=== PATIENT | female | born 1960 | race Caucasian/White ===

== ENCOUNTER 2019-09-15 14:30 | Outpatient (RCR) | payer MEDICARE, SELFPAY ==
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
--- NOTE | 2019-08-30 15:24 | HP.PTREVAL_ITS ---
FRANK OAKES, It has been my pleasure to treat SEPIDEH JEAN-BAPTISTE over the last 6 visits for LBP, Sciatica. Please see the progress note below for an update on the physical therapy plan of care! Subjective: Pt. reports she cont. to have intermittent LBP that at times wraps around to the front of leg. She is very happy with aquatics therapy, feels good after AT TX SESSIONS. Has plans to attend pool on her own. Getting epidural 09/25, have ahd discussions w/ about cortisone shots in B hips in fuure. Objective/Function: Posture: FH, RS, Increased kyphosis- severe guarding of lumbar spine with movement. Gait: no deviation in LE but have limited trunk rotation and arm swing. ROM: Lumbar: Flexion: hands to mid lopez, Extn: to neutral, SB: decreased by 50%, Rot: decreased by 75% reports increased w/ flexion/ext., L SB, L Rot, no pain with r SB?Rotmotions and is hesitant. Hip: flexion to 90 degrees in supine then reports pain, IR/ER/Abd/Extn: WFL but reports pain, Knee/Ankle: WFL. Sensation:reports hypersensitivity on the right LE in the mid lopez. Palpation: tender throughout lumbar paraspinals, gluts and greater trochs. Flex: Gastroc: moderate, Hamstring: severe and reports pain. Dural Signs: positive bilateral. Strength:Core: poor, Hip: 4-/5 throughout, Knee: 4+/5, Ankle: 5/5. Tenderness t/o has subsided slightly. [ End ] Plan Plan: 08/30/19 2x/week for 4 more weeks of AT. Progress as tolerated. Goals Goal 1:: Pt. will maintain proper posture t/o tx session. Goal Time Frame: 4-6 Weeks Goal Progress: Progressing Goal 2:: Pt. will return to ADL's & report a pain level 0/10 Goal Time Frame: 4-6 Weeks Goal Progress: Progressing Goal 3:: Patient will demo 4+/5 strenth in LE Goal Time Frame: 4-6 Weeks Goal Progress: Progressing Anticipated Interventions Patient/Client Instruction: Educate patient on: Condition, Plan of Care For the Purpose of:: To decrease pain Therapeutic Exercise to Include: Strength training, Endurance training, Body mechanics, Postural training, Flexibilty training, In an aquatic setting, Passive ROM, Dynamic Lumbar Stabilization For the Purpose of:: To improve muscle performance and motor function TENS: Yes Cryotherapy (ice pack, ice massage): Yes Thermo therapy (hot pack): Yes Ultrasound (thermal/non thermal): Yes For the Purpose of:: To decrease pain Please do not hesitate to contact me at [phone] by phone or Fax: if you have questions or concerns regarding this new plan of care! Sincerely, GIA ShipleyT
--- NOTE | 2019-11-07 11:23 | HP.PT.NRP ---
HP - Discharge Summary (1) - Patient Information SEPIDEH JEAN-BAPTISTE was seen in my office for initial evaluation on 07/28/19. The following Plan of Care was established for this patient: Initial Frequency: 2x /Week Initial Duration: 4 Weeks - Anticipated Interventions Patient/Client Instruction: Educate patient on: Condition, Plan of Care For the Purpose of:: To decrease pain Therapeutic Exercise to Include: Strength training, Endurance training, Body mechanics, Postural training, Flexibilty training, In an aquatic setting, Passive ROM, Dynamic Lumbar Stabilization For the Purpose of:: To improve muscle performance and motor function TENS: Yes Cryotherapy (ice pack, ice massage): Yes Thermo therapy (hot pack): Yes Ultrasound (thermal/non thermal): Yes For the Purpose of:: To decrease pain This patient was last seen in our office . Pertinent comments regarding their Physical therapy will appear below: Patient has not attended physical therapy in over 4 weeks- appropriate for d/c and return to MD as appropriate. At this point I will be discontinuing this patient from physical therapy. I would be happy to see this patient again in the future if found appropriate by the physician. Thank you! GIA ShipleyT
== END 2019-09-15 19:00 | disposition home or self-care (01) ==
LOC: PT 14:30
PROVIDERS: Family Provider Family Medicine; PCP Family Medicine
DX: M51.36 Other intervertebral disc degeneration, lumbar region (principal); M54.5 Low back pain; G89.4 Chronic pain syndrome
CPT/HCPCS: 97113; 97161; 97164

== ENCOUNTER 2021-08-26 15:30 | Outpatient (RCR) | payer MEDICARE, MEDICAID, SELFPAY ==
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
--- NOTE | 2021-08-26 15:59 | HP.PTDCSUM ---
It has been my pleasure to treat SEPIDEH JEAN-BAPTISTE referred by INES NICHOLS, with the diagnosis of LOW BACK PAIN for a total of 9 visit(s). Discharge Date: 08/26/21 Please see the following information for a summary of their discharge status. Subjective: Patient states doing much better with managing pain. Patient has not been back to ,but may see DR in the next month Right Back Pain Intensity (Out of 10): 4 % Improvement: 50 Objective/Function: POSTURE: mild forward posture. GAIT: reciprocal pattern. PALAPTION: unremarkable. MMT: quads/hams 4/5,hip flexion 4-/5,ankle 4/5. LUMBAR ROM: flexion min loss,extension min loss Goal 1:: I with Aquatic therapy Goal Progress: Goal Met Goal 2:: Patient to improve lumbar ROM for function of recoevery Goal Progress: Goal Met Goal 3:: Patient to decrease lumbar pain by 50% or> to improve function with gait Goal Progress: Goal Met Goal 4:: Patient to increase BLE strength 4/5 quads/hams ,hip 4-/5 to improve gait Goal Progress: Goal Met Goal 5:: Patient to improve back owestry score by 5 points or > to improve QOL. Goal Progress: Goal Met Plan: D/C TO Aquatic Discharge Comments: WATER EXERCISES If there are questions or concerns regarding this patient's physical therapy, please feel free to call me at [phone]. Thank you for the referral of this patient. Sincerely, Art Rico, PT, Cert MDT, OCS Balance/Gait/Functional tests - Balance/Special Test Scores Oswestry Low Back Score: 5
== END 2021-08-26 19:00 | disposition home or self-care (01) ==
LOC: PT 15:30
PROVIDERS: PCP Family Medicine
DX: M54.5 Low back pain (principal)
CPT/HCPCS: 97113; 97162; 97530

== ENCOUNTER → 2024-09-01 | Outpatient (CLI) | payer MEDICARE, MEDICAID, SELFPAY ==
[2024-09-01 09:08] LABS: Absolute Lymphocyte Count 1.98 X10^3/uL (0.83-4.51); Absolute Neutrophil Count 1.2 X10^3/uL (2.0-7.7); Basophil# 0.04 X10^3/uL; Basophil% 1.1 % (0-1); Eosinophil# 0.24 X10^3/uL; Eosinophils% 6.5 % (0-5); Hemoglobin 13.1 g/dL (12.0-15.0); Lymphocyte # 1.98 X10^3/ul (0.83-4.51); Lymphocyte % 53.4 % (19-41); Mean Corp Hgb Conc 32.8 g/dL (32-36); Mean Corpuscular Hgb 32.3 pg (27.0-32.0); Mean Corpuscular Volume 98.5 fL (81-99); Mean Platelet Vol. 10.2 fl (6.2-12.0); Monocyte# 0.27 X10^3/uL; Monocyte% 7.3 % (0-10); NRBC Flagged by Analyzer 0 % (0-5); Neutrophil # 1.18 X10^3/uL (2.7-7.7); Neutrophil % 31.7 % (47-70); Platelet Count 229 K/mm3 (150-450); RBC Distribution Width CV 13.2 % (11.6-14.6); RBC Distribution Width SD 48.3 fl (35.1-43.9); Red Blood Count 4.06 M/mm3 (4.2-5.4); White Blood Count 3.7 K/mm3 (4.4-11.0)
[2024-09-01 09:28] LABS: Vitamin D,25 Hydroxy 11.1 ng/mL
[2024-09-01 09:30] LABS: Hemoglobin A1c 5.9 % (3.8-5.6)
[2024-09-01 09:34] LABS: AST(SGOT) 18 U/L (15-37); Alanine Aminotransfer ALT/SGPT 31 U/L (13-56); Albumin, Serum 3.6 g/dL (3.2-5.0); Alkaline Phosphatase 98 U/L (45-117); Anion Gap 4 (5-15); BUN 15 mg/dL (7-18); BUN/Creat Ratio 19.5 RATIO (10-20); Calcium,Total 9.4 mg/dL (8.5-10.1); Chloride 107 mmol/L (98-107); Cholesterol 209 mg/dL (200); Creatinine, Serum 0.77 mg/dL (0.55-1.02); EST Glomerular Filtration Rate 80 mL/min (>60); Est Glom Filt Rate - Afr Amer 97 mL/min (>60); Globulin 3.5 g/dL (2.2-4.2); Glucose 104 mg/dL (74-106); High Density Lipoprotein 45 mg/dL; Protein, Total 7.1 g/dL (6.4-8.2); Sodium Level 140 mmol/L (136-145); Thyroid Stim Hormone (TSH) 0.101 uIU/mL (0.358-3.740); Triglycerides 153 mg/dL; Very Low Density Lipoprotein 31 mg/dL (5-40)
== END | disposition home or self-care (01) ==
PROVIDERS: PCP Family Medicine
DX: Z79.899 Other long term (current) drug therapy (principal)
CPT/HCPCS: 36415; 80053; 80061; 82306; 83036; 84443; 85025

== ENCOUNTER 2024-11-07 14:30 | Outpatient (RCR) | payer MEDICARE, MEDICAID, SELFPAY ==
--- NOTE | 2024-07-20 16:30 | HP.PTEVAL ---
Patient's Visit Information Visit Information Visit Information: SEPIDEH JEAN-BAPTISTE is a 64 year old F referred to Physical Therapy by LIS Jose with a diagnosis of CHRONIC RIGHT SIDE LOW BACK PAIN WITH SCIATICA,CERVICAL RADICULOPATHY. Date of Evaluation: 07/20/24 Physical Therapist: Art Rico, PT, Cert MDT, OCS Visit Plan Frequency: 2x /Week Duration: 4 Weeks Plan: PT INTERVENTIONS AQUATIC THERAPY FOR CERVICAL/LUMBAR ROM ,POSTURAL EX'S ,DLS ,LE FLEXABILITY AND ACTIVITY MODIFICATION Subjective Subjective: This 64 y/o female presents to physical therapy with cervical and lumbar pain. Patient has had lumbar many years had MRI 2020 DDd bulging disc and foraminal narrowing. Patient seen DR prescribed meloxicam and muscle relaxer. Patient had x-rays of cervical DDD . Patient has had neck pain for ~ 3 years. Patient has seen chiropractor. Patient pain located lumbar pain with radicular symptoms to anterior thigh right > left . Location cervical to shoulders. Patient pain dull pain . Denies paresthesia/tingling in legs and occasionally in hands. Aggravating standing 10mins ,sitting ,bending and lifting. Alleviating heaty and rest. Aggravating sitting ,flexion ,lifting [place] < 5 #. C/O [employer]. Denies nausea/tinnitus.Coughing/sneezing- . Bowel/bladder-. Patient use sleeping aid for night. Patient sees chiropractor. Patient fell last year. Patient has seen pain management in April with injections for lumbar. Patient pain affects QOL and function with housework tasks. Patient goals to decrease pain in back and neck. SOCIAL: VOCATION: disability Pain Bilateral Back: Pain Intensity (Out of 10): 7 Pain Intensity Range: 10 Bilateral Neck: Pain Intensity (Out of 10): 8 Pain Intensity Range: 10 Objective Objective: POSTURE: mild forward posture NEURO: denies paresthesia/tingling ,reflexes C5-6-7 2/3,L4-5,L4-L5,L5-S 1 3/3 PALAPTION: tender LS/SI -levator/scapular AROM: BUE WFL CERVICAL ROM: flexion min loss .extension mod loss ,lateral flexion/rotation mod loss LUMBAR ROM: flexion mod loss ,extension mod loss ,side glides min loss MMT: quads/hams 4/5 ,hip flexion 4-/5 FLEXABILITY: hamstrings mod tight GAIT: reciprocal pattern Special Tests C/S Radiculapathy - Left Upper limb tension test: Negative C/S Radiculapathy - Right Upper limb tension test: Negative C/S Radiculapathy - Left [place]: Positive C/S Radiculapathy - Right [place]: Positive C/S Radiculapathy - Left Cervical distraction: Negative C/S Radiculapathy - Right Cervical distraction: Negative C/S Radiculapathy - Left Relief test: Negative C/S Radiculapathy - Right Relief test: Negative C/S Radiculapathy - Valsalva: Negative Sharp Nicholas: Negative Vertebral Artery Test: Negative Alar Ligament Test: Negative L/S Slump test left side: Negative L/S Slump test right side: Negative L/S Left Straight Leg Raise: Negative L/S Right Straight Leg Raise: Negative Lumbar Standing: Flexion - Mechanical Response: No effect Lumbar Standing: Flexion - Symptoms During Testing: Increases Lumbar Standing: Flexion - Symptoms After Testing: No worse Lumbar Standing: Extension - Mechanical Response: No effect Lumbar Standing: Extension - Symptoms During Testing: Increases Lumbar Standing: Extension - Symptoms After Testing: No worse Lumbar Standing: Right Side Glides - Mechanical Response: No effect Lumbar Standing: Right Side [place] - Symptoms During Testing: No effect Lumbar Standing: Right Side [place] - Symptoms After Testing: No effect Lumbar Standing: Left Side [place] - Mechanical Response: No effect Lumbar Standing: Left Side [place] - Symptoms During Testing: No effect Lumbar Standing: Left Side [place] - Symptoms After Testing: No effect Balance/Special Test Scores Oswestry Low Back Score: 31 Goals Goal 1:: Patient to be I with Aquatic therapy program Goal Time Frame: 4-6 Weeks Goal 2:: Patient to improve cervical ROM for function of recovery to drive Goal Time Frame: 4-6 Weeks Goal 3:: Patient to improve lumbar ROM for function of recovery to put on shoes Goal Time Frame: 4-6 Weeks Goal 4:: Patient to improve back oswestry by 5 points to improve QOL and function Goal Time Frame: 4-6 Weeks Goal 5:: Patient to demonstrate 40% improvement with less pain and improved function Goal Time Frame: 4-6 Weeks Rehabilitation Potential Physical Therapy Diagnosis: This patient has cervical and lumbar pain with pain with positioning and motion testing affects walking/standing causes impairments with ADL and housework tasks thus benefit from skilled PT Rehabilitation Potential: Good Anticipated Interventions Patient/Client Instruction: Educate patient on: Condition and Plan of Care For the Purpose of:: To decrease pain, To increase ROM, To improve muscle performance and motor function, To improve ability to perform ADL's, To increase tolerance to activity/condition/position, To improve ability of physical actions for home/community/work/leisure, To improve health of tissue, To decrease soft tissue restriction, To increase flexibility/ROM, To reduce risk of recurrence and To prevent re-injury Therapeutic Exercise to Include: Strength training, Endurance training, Balance training, Postural training, Flexibilty training, In an aquatic setting and Dynamic Lumbar Stabilization For the Purpose of:: To decrease pain, To increase ROM, To improve muscle performance and motor function, To increase tolerance to activity/condition/position, To improve performance and independence with ADL's, To improve ability of physical actions for home/community/work/leisure, To improve health of tissue, To decrease soft tissue restriction, To increase flexibility/ROM, To improve endurance, To improve safety, To prevent re-injury and To improve tolerance to ADL's Text: Thank you for the opportunity to evaluate your patient. For Medicare and Medicare HMO plans, please review the plan of care and approve it. It will need to be FAXED BACK to us at [phone] for Medicare purposes. For Medicare only, by signing this I certify the plan of care. Please let me know if there are questions or concerns regarding this plan of care. Physician Signature: Date:
--- NOTE | 2024-08-24 17:26 | HP.PTREVAL ---
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 Please see the progress note below for an update on the physical therapy plan of care! Subjective Subjective: Doing better ,meloxicam ,flexeril combination doesn't work well so just takes flexeril Worse in hips sees chiropractor 2xweek Objective Objective/Function: * Patient conts to benefit from skilled PT to decrease pain with goals and appropriate goals* POSTURE: mild forward posture NEURO: denies paresthesia/tingling ,reflexes C5-6-7 2/3,L4-5,L4-L5,L5-S 1 3/3 PALAPTION: tender LS/SI -levator/scapular AROM: BUE WFL CERVICAL ROM: flexion min loss ,extension min/mod loss ,lateral flexion/rotation min/mod loss LUMBAR ROM: flexion min/mod loss ,extension mod loss ,side glides min loss MMT: quads/hams 4/5 ,hip flexion 4-/5 FLEXABILITY: hamstrings mod tight GAIT: reciprocal pattern Plan Plan Plan: PT INTERVENTIONS AQUATIC THERAPY FOR CERVICAL/LUMBAR ROM ,POSTURAL EX'S ,DLS ,LE FLEXABILITY AND ACTIVITY MODIFICATION Balance/Gait/Functional tests Balance/Special Test Scores Oswestry Low Back Score: 23 Goals Goals Goal 1:: Patient to be I with Aquatic therapy program Goal Time Frame: 4-6 Weeks Goal Progress: Progressing Goal 2:: Patient to improve cervical ROM for function of recovery to drive Goal Time Frame: 4-6 Weeks Goal Progress: Progressing Goal 3:: Patient to improve lumbar ROM for function of recovery to put on shoes Goal Time Frame: 4-6 Weeks Goal Progress: Progressing Goal 4:: Patient to improve back oswestry by 5 points to improve QOL and function Goal Time Frame: 4-6 Weeks Goal Progress: Progressing Goal 5:: Patient to demonstrate 40% improvement with less pain and improved function Goal Time Frame: 4-6 Weeks Goal Progress: Progressing Anticipated Interventions Anticipated Interventions Patient/Client Instruction: Educate patient on: Condition and Plan of Care For the Purpose of:: To decrease pain, To increase ROM, To improve muscle performance and motor function, To improve ability to perform ADL's, To increase tolerance to activity/condition/position, To improve ability of physical actions for home/community/work/leisure, To improve health of tissue, To decrease soft tissue restriction, To increase flexibility/ROM, To reduce risk of recurrence and To prevent re-injury Therapeutic Exercise to Include: Strength training, Endurance training, Balance training, Postural training, Flexibilty training, In an aquatic setting and Dynamic Lumbar Stabilization For the Purpose of:: To decrease pain, To increase ROM, To improve muscle performance and motor function, To increase tolerance to activity/condition/position, To improve performance and independence with ADL's, To improve ability of physical actions for home/community/work/leisure, To improve health of tissue, To decrease soft tissue restriction, To increase flexibility/ROM, To improve endurance, To improve safety, To prevent re-injury and To improve tolerance to ADL's Re-Evaluation Ending Re-evaluation ending: Please do not hesitate to contact me at [phone] by phone or if you have questions or concerns regarding this new plan of care! Sincerely, Art Rico, PT, Cert MDT, OCS
--- NOTE | 2024-09-22 14:54 | HP.PTREVAL ---
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 Please see the progress note below for an update on the physical therapy plan of care! Subjective Subjective: Aquatic therapy has been helping ,patient reports increase strength in shoulders Patient able to walk 6 blocks Objective Objective/Function: * Patient conts to benefit from skilled PT to decrease pain in cervical and lumbar with goals and appropriate goals* POSTURE: mild forward posture NEURO: denies paresthesia/tingling ,reflexes C5-6-7 2/3,L4-5,L4-L5,L5-S 1 3/3 PALAPTION: tender LS/SI -levator/scapular AROM: BUE WFL CERVICAL ROM: flexion min loss ,extension min/mod loss ,lateral flexion/rotation min/mod loss LUMBAR ROM: flexion min/mod loss ,extension mod loss ,side glides min loss MMT: quads/hams 4/5 ,hip flexion 4-/5 FLEXABILITY: hamstrings mod tight GAIT: reciprocal pattern Plan Plan Plan: PT INTERVENTIONS AQUATIC THERAPY FOR CERVICAL/LUMBAR ROM ,POSTURAL EX'S ,DLS ,LE FLEXABILITY,,AEROBIC AND ACTIVITY MODIFICATION Balance/Gait/Functional tests Balance/Special Test Scores Oswestry Low Back Score: 25 Goals Goals Goal 1:: Patient to be I with Aquatic therapy program Goal Time Frame: 4-6 Weeks Goal Progress: Progressing Goal 2:: Patient to improve cervical ROM for function of recovery to drive Goal Time Frame: 4-6 Weeks Goal Progress: Progressing Goal 3:: Patient to improve lumbar ROM for function of recovery to put on shoes Goal Time Frame: 4-6 Weeks Goal Progress: Progressing Goal 4:: Patient to improve back oswestry by 5 points to improve QOL and function Goal Time Frame: 4-6 Weeks Goal Progress: Progressing Goal 5:: Patient to demonstrate 50% improvement with less pain and improved function( NE GOAL) Goal Time Frame: 4-6 Weeks Goal Progress: Progressing Anticipated Interventions Anticipated Interventions Patient/Client Instruction: Educate patient on: Condition and Plan of Care For the Purpose of:: To decrease pain, To increase ROM, To improve muscle performance and motor function, To improve ability to perform ADL's, To increase tolerance to activity/condition/position, To improve ability of physical actions for home/community/work/leisure, To improve health of tissue, To decrease soft tissue restriction, To increase flexibility/ROM, To reduce risk of recurrence and To prevent re-injury Therapeutic Exercise to Include: Strength training, Endurance training, Balance training, Postural training, Flexibilty training, In an aquatic setting and Dynamic Lumbar Stabilization For the Purpose of:: To decrease pain, To increase ROM, To improve muscle performance and motor function, To increase tolerance to activity/condition/position, To improve performance and independence with ADL's, To improve ability of physical actions for home/community/work/leisure, To improve health of tissue, To decrease soft tissue restriction, To increase flexibility/ROM, To improve endurance, To improve safety, To prevent re-injury and To improve tolerance to ADL's Re-Evaluation Ending Re-evaluation ending: Please do not hesitate to contact me at [phone] by phone or if you have questions or concerns regarding this new plan of care! Sincerely, Art Rico, PT, Cert MDT, OCS
--- NOTE | 2024-11-07 14:59 | HP.PTDCSUM ---
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 Discharge Date: 11/07/24 Please see the following information for a summary of their discharge status. Subjective Subjective: Some better overall with less shoulder Taking meloxicam Pain Bilateral Back: Pain Intensity (Out of 10): 5 Bilateral Neck: Pain Intensity (Out of 10): 8 LBP: Pain Intensity (Out of 10): 7 RUE: Pain Intensity (Out of 10): 6 R hip: Pain Intensity (Out of 10): 3 Overall Improvement % Improvement: 30 Objective Objective/Function: mild forward posture NEURO: denies paresthesia/tingling ,reflexes C5-6-7 2/3,L4-5,L4-L5,L5-S 1 3/3 PALAPTION: tender LS/SI -levator/scapular AROM: BUE WFL CERVICAL ROM: flexion min loss ,extension min/mod loss ,lateral flexion/rotation min/mod loss LUMBAR ROM: flexion min/mod loss ,extension MIN/ mod loss ,side glides min loss MMT: quads/hams 4/5 ,hip flexion 4-/5 FLEXABILITY: hamstrings mod tight GAIT: reciprocal pattern Goals Goal 1:: Patient to be I with Aquatic therapy program Goal Progress: Progressing Goal 2:: Patient to improve cervical ROM for function of recovery to drive Goal Progress: Progressing Goal 3:: Patient to improve lumbar ROM for function of recovery to put on shoes Goal Progress: Progressing Goal 4:: Patient to improve back oswestry by 5 points to improve QOL and function Goal Progress: Progressing Goal 5:: Patient to demonstrate 50% improvement with less pain and improved function( NE GOAL) Goal Progress: Progressing Plan Plan: D/C D/C Information d/c sentence: If there are questions or concerns regarding this patient's physical therapy, please feel free to call me at [phone]. Thank you for the referral of this patient. Sincerely, Art Rico, PT, Cert MDT, OCS Balance/Gait/Functional tests Balance/Special Test Scores Oswestry Low Back Score: 25 Improvement % Improvement: 30
== END 2024-11-07 19:00 | disposition home or self-care (01) ==
LOC: PT 14:30
PROVIDERS: PCP Family Medicine; Referring Provider Physician Assistant; Visit Provider Physician Assistant
DX: M54.41 Lumbago with sciatica, right side (principal); M54.12 Radiculopathy, cervical region; G89.29 Other chronic pain
CPT/HCPCS: 97113; 97162; 97530